=== PATIENT | female | born 1995 | race Caucasian/White ===

== ENCOUNTER 2025-07-09 12:46 | Emergency (ER) | payer OTHER, SELFPAY ==
[2025-07-09 12:52] VITALS: BP 135/84
--- NOTE | 2025-07-09 13:48 | ED.GENMED ---
History of Present Illness
General
Chief Complaint: Crisis Evaluation
Source: patient and family
Exam Limitations: none
Time Seen by Provider: 07/09/25 13:23
Nursing documentation reviewed up to this point in time: agreed with
History of Present Illness
History of Present Illness:
29-year-old female single lives with her mother binge drinker has been partying a lot using cocaine woke up this morning depressed suicidal thought about taking pills, Not eating or drinking much lately does not going to withdrawal said 1 prior DUI
has shown up to work late
Past History
Past History
ED Past Medical History: None
ED Past Surgical History: Other (wisdom teeth)
Social History
Tobacco: Smoker (11/10 ppd)
Alcohol: Binge drinker
Drug: Marijuana and Cocaine
Personal: Single
Living: with family
Employment: Employed
Review of Systems
Review of Systems
All Other Systems: Not applicable
ABD/GI: Reports nausea
Psychiatric: Reports depression, anxiety and suicidal; Denies hallucinations
Phy Exam
Physical Exam
Physical Exam:
Physical Exam
General: no apparent distress, not acutely ill
Neck: No jaundice
Heart: s1/s2 regular rate and rhythm, no murmur. equal radial pulses.
Lungs: no acute respiratory distress. clear bilaterally
Abdomen: Soft minimal epigastric tenderness
Neuro: alert and oriented. no focal neurological deficits
Skin: no rash
Psychiatric: well kept. interactive and cooperative
Extremities: no edema.
Course
Orders/Labs/Results
Orders:
Orders
07/09/25 12:50
1:1 Observation - Suicide/ Violent Behavior As Directed
Crisis Consult Urgent
Reason for Consult: si
07/09/25 13:36
Urine Drug Abuse Screen Urgent
Test Result ONCE
07/09/25 14:04
Acetaminophen Urgent
Alcohol Urgent
Complete Blood Count/With Diff Urgent
Comprehensive Metabolic Panel Urgent
HCG, Serum Qualitative Screen Urgent
Salicylate Urgent
07/09/25 15:00
0.9% Sodium Chloride 1000 ml [Nss] 1,000 ml Mvi, Adult [Multivitamin] 10 ml Thiamine Injection 100 mg Magnesium Sulfate 2 grams IV 1,000 mls/hr
Abnormal Lab Results
07/09/25
14:04
Absolute Neuts (auto) 6.6 H 10^3/uL
(1.4-6.5)
BUN 5 L mg/dl
(7-17)
Salicylates < 1.0 L mg/dl
(2.0-20.0)
Acetaminophen < 10 L ug/ml
(10-30)
07/09/25 14:04
07/09/25 14:04
Vital Signs
Initial and Last Documented VS:
Initial Vital Signs
Temp Pulse Resp BP Pulse Ox
98.0 F 100 16 135/84 98
07/09/25 12:52 07/09/25 12:52 07/09/25 12:52 07/09/25 12:52 07/09/25 12:52
Last Documented Vital Signs
Temp Pulse Resp BP Pulse Ox
98.0 F 100 18 135/84 98
07/09/25 12:52 07/09/25 12:52 07/09/25 14:00 07/09/25 12:52 07/09/25 13:48
MDM/Problems Addressed
Differential Diagnosis Includes:
si, no od, alcohol, no sign of withdrawal
MDM/Problems Addressed:
SI
Chronic conditions affecting care: Psychiatric illness
Acute Exacerbation and/or Progression of Chronic Illness: Psychiatric illness
*Pulse Oximetry
SaO2: 98
Oxygen Mode of Delivery: Room air
Patient hypoxic: no
*Critical Care Note
Total Time (30-74mins, 75-104mins- exclusive of procedures): Not Applicable
Update Note
Update Note:
Plan 4 PM patient medically clear for psychiatric evaluation and placement
ED Attending Note
-
Portions of this chart may have been created with voice recognition software.� Occasional wrong word or��sound alike� substitutions may have occurred due to the inherent limitations of voice recognition software.
Discharge Plan
Departure
Patient Disposition: Psych Facility
Date of Disposition: 07/09/25
Time of Disposition: 16:06
Patient with high blood pressure during this ER visit?: No
Condition: Good
Covid-19: Not Applicable
Discharge Problem:
Suicidal ideation
Referrals:
UNKNOWN,NO INTERVIEW [Family Provider]
Interventions
Interventions:
*Risk Screen - Suicide Last Done: 07/09/25 12:48
*General Assessment Last Done: 07/09/25 14:06
*Neglect/Abuse Screening Last Done: 07/09/25 12:52
*ED- Fall Risk Assessment Last Done: 07/09/25 14:06
ED-Psychological Assessment Last Done: 07/09/25 14:06
Discharge Date and Time
Print Language: BENINESE
[2025-07-09 14:30] LABS: HCG, Serum Qualitative Screen Negative
[2025-07-09 14:36] LABS: ALT (SGPT) 25 U/L (0-35); AST (SGOT) 28 U/L (14-36); Albumin 5.0 g/dl (3.5-5.0); Alkaline Phosphatase 82 U/L (38-126); Blood Urea Nitrogen 5 mg/dl (7-17); Calcium 9.3 mg/dl (8.4-10.2); Carbon Dioxide 26 mmol/L (22-30); Chloride 105 mmol/L (98-107); Glucose 84 mg/dl (70-99); Hematocrit 42.5 % (37.0-47.0); Hemoglobin 14.5 g/dL (12.0-16.0); Mean Corp Hgb Conc. 34.1 g/dL (33.0-37.0); Mean Corpuscular Volume 89.5 fL (81.0-99.0); Nucleated Red Blood Cells % 0 %; Platelet Count 350 10^3/uL (130-400); Potassium 4.5 mmol/L (3.5-5.1); Red Cell Dist. Width 11.9 % (11.5-14.5); Sodium 141 mmol/L (135-145); Total Protein 7.6 g/dl (6.3-8.2); eGFR > 60.00
[2025-07-09] MEDS: MULTIVITAMIN 1015 ML IV (14:37)
[2025-07-09] MEDS: MULTIVITAMIN 1015 GRAMS IV (14:37)
[2025-07-09] MEDS: MULTIVITAMIN 1015 MG IV (14:37)
[2025-07-09 15:06] LABS: Acetaminophen < 10 ug/ml (10-30); Salicylate < 1.0 mg/dl (2.0-20.0)
[2025-07-09 18:59] VITALS: BP 105/67
== END 2025-07-09 20:47 ==
LOC: EMR 12:46
PROVIDERS: EMERGENCY PHYSICIAN Emergency Medicine
DX: R45.851 Suicidal ideations (principal); F14.10 Cocaine abuse, uncomplicated; F17.210 Nicotine dependence, cigarettes, uncomplicated
CPT/HCPCS: 99285; 80053; 80143; 80179; 80306; 80307; 82077; 84703; 85025